=== PATIENT | male | born 1990 | race Caucasian/White ===

== ENCOUNTER 2016-02-20 19:47 | Emergency (ER) | payer SELFPAY | END 2016-02-20 21:44 | disposition home or self-care (01) | LOC: FASTR 19:47 | DX: S80.811A Abrasion, right lower leg, initial encounter (principal); S80.11XA Contusion of right lower leg, initial encounter; V47.1XXA Car passenger injured in collision with fixed or stationary object in nontraffic accident, initial encounter ==